=== PATIENT | female | born 1975 | race Caucasian/White ===

== ENCOUNTER → 2021-09-24 14:36 | Outpatient (CLI) | payer OTHER, SELFPAY ==
--- NOTE | ~2021-09-24 | MM_ITS ---
EXAMINATION: MM screening judith BI w bruno HISTORY: Screening TECHNIQUE: Craniocaudal and mediolateral oblique 3-D tomosynthesis images were obtained and synthetic 2-D images were generated. CAD analysis was submitted and interpreted. COMPARISON: 07/24/2011 BREAST PARENCHYMAL COMPOSITION: There are scattered areas of fibroglandular density. FINDINGS: The breasts are stable. No new masses, calcifications or architectural distortion are ident ified in either breast to suggest malignancy. IMPRESSION: 1. No mammographic evidence of malignancy. 2. Recommend routine screening mammography in one year. BI-RADS Category 1: Negative Reviewed, dictated and finalized at location [facility]
== END ==
PROVIDERS: PCP Family Medicine; Visit Provider Physician Assistant
DX: Z12.31 Encounter for screening mammogram for malignant neoplasm of breast (principal)
CPT/HCPCS: 77063; 77067

== ENCOUNTER 2023-11-21 13:13 | Outpatient (CLI) | payer OTHER, SELFPAY ==
--- NOTE | ~2023-11-21 | US_ITS ---
Pelvic ultrasound. Clinical History: Hypertrophy of uterus Technique: Realtime transabdominal and transvaginal scanning of the pelvis was performed. Color flow Doppler and Doppler spectral analysis were performed. Findings: The uterus is anteverted, and measures 7.2 x 4.3 x 4.3 cm. The endometrial stripe has a th ickness of 5 mm. Probable posterolateral fibroid measures 1.8 cm in maximum diameter.. There is a 7.7 cm cystic mass in the left adnexal region with internal debris and probable echogenic mural nodule, most suggestive of left ovarian dermoid. Right ovary not visualized. There is no evidence of free fluid in the cul de sac. Impression: 1.8 cm uterine fibroid. Suspected 7.7 cm left ovarian dermoid. Consider CT or MR to further evaluate. Reviewed, dictated and finalized at [facility]. Impression: 1.8 cm uterine fibroid. Suspected 7.7 cm left ovarian dermoid. Consider CT or MR to further evaluate.
== END 2023-11-21 13:14 ==
LOC: MICIMG 13:14
PROVIDERS: PCP Physician Assistant; Visit Provider Obstetrics & Gynecology
DX: N85.2 Hypertrophy of uterus (principal); D25.9 Leiomyoma of uterus, unspecified
CPT/HCPCS: 76830; 76856

== ENCOUNTER 2024-01-16 08:27 | Outpatient (CLI) | payer OTHER, SELFPAY | END 2024-01-16 08:28 | disposition home or self-care (01) | LOC: ANHSURGERY 08:30 | PROVIDERS: PCP Physician Assistant; Visit Provider Obstetrics & Gynecology | DX: N92.0 Excessive and frequent menstruation with regular cycle (principal); Z01.818 Encounter for other preprocedural examination | CPT/HCPCS: 36415; 86850; 86900; 86901 ==

== ENCOUNTER 2024-01-20 00:14 | Day surgery (SDC) | payer OTHER, SELFPAY ==
[2024-01-13 12:12] VITALS: BMI 41.2
--- NOTE | 2024-01-13 13:24 | PC.NURSE ---
Report to the Outpatient Waiting Room, entrance under the green pavilion located off [facility], at time __6:00AM on date __01/20/24____. Planned Procedure Time: ___7:30AM . Time changes happen often and if your time is changed the preop area will call you the afternoon before. - You and your visitor will be asked to self-screen and do not enter if you have any COVID symptoms. - A mask is optional within the hospital at this time. Patients may have clear liquids (water, carbonated beverages, clear teas, apple juice) until 3 hours prior to surgery with a maximum of 20 ounces. - No food from midnight until time of surgery. Take the following medications with a SIP of water the morning of surgery: NONE DO NOT STOP ANY OF YOUR OTHER PRESCRIPTION MEDICATIONS PRIOR TO SURGERY ?EXCEPT THE FOLLOWING Medications to discontinue per physician HOLD ALL VITAMINS/SUPPLEMENT 3 DAYS PRE-OP PER ANESTHESIA Date to take last dose 01/16/24 Please no make-up, nail ivorian, hairspray, perfume, deodorant, or body powder the day of surgery. No jewelry (including any body piercings) or valuables the day of surgery, leave them at home. Please take a shower or bath the night before, or the morning of, surgery with an antibacterial soap. Wear comfortable, loose fitting clothing. - Jewelry must be removed prior to entering the operating room. Rings and piercings that are not removed may be cut off. - The hospital will not accept responsibility for valuables. - Please leave all valuables, including medications, at home the day of surgery. If you are going home after surgery, a licensed truck driver's offsider must drive you home. - NO public transportation without another adult if you receive anesthesia. - We recommend that an adult stay with you for 24 hours following discharge. - We also recommend that you do not drive, make important decision, drink alcoholic beverages, or take any drugs that were not prescribed by your health care provider for at least 24 hours after your discharge time. Follow any additional instructions given to you from your surgeon. If you or anyone in your household have experienced Covid symptoms in the past week, please notify your surgeon or the nurse liaison at the phone number below for possible testing. Telephone instructions given to ____PATIENT and asked if any additional questions and then verbalized understanding. Patient advised to call surgeon office or pre surgery nurse liaison [phone] if any additional questions.
--- NOTE | 2024-01-19 15:38 | PM.IMHP ---
H&P: HPI History of Present Illness Date/Time: 01/19/24 15:38 Chief Complaint: Heavy periods and dermoid cyst Narrative: She is a perimenopausal female was seen at her annual exam and was noted to have an enlarged uterus. Subsequent ultrasound showed a 7 cm dermoid cyst she also had a small fibroid. She does have a history of heavy periods her periods are not regular since perimenopause but when she does have a period it is heavy and she has soiling and has to stop working.? Discussed options for heavy bleeding to include endometrial ablation,hormonal options, IUD and discussed the treatment options for dermoid which is surgical. She has had an endometrial biopsy which did not show any malignancy. She desires definitive treatment of the menorrhagia with hysterectomy.? She is aware the only option for the dermoid is excision which will include the ovary.? She states she just found out her mother who has dementia was diagnosed with ovarian cancer years ago.? She wants both ovaries to be removed at the time of the hysterectomy. She is aware she will go into immediate menopause and discussed symptoms of menopause and bone health. She has been informed of the hysterectomy robotic assisted procedure risks benefits of the procedure and risks benefits of the options listed above. And she continues to desire definitive treatment with hysterectomy and bilateral salpingo-oophorectomy. Review of Systems Review of Systems: All systems reviewed & are unremarkable except as noted in HPI and below Cardiovascular: Cardiovascular: Reports no additional cardiovascular complaints, Denies chest pain and Denies dyspnea Respiratory: Respiratory: Reports no additional respiratory complaints and Denies dyspnea Gastrointestinal: Gastrointestinal: Reports abdominal pain, Denies change in bowel habits, Denies diarrhea, Denies nausea and Denies vomiting Genitourinary: Genitourinary: Reports pelvic pain Musculoskeletal: Musculoskeletal: Reports back pain Integumentary/Breasts: Skin/Breast: Reports system reviewed and no additional complaints, except as docu Neurologic: Reports system reviewed and no additional complaints, except as documented PMFSH Past Medical History Medical History Allergies Headache Surgical History Surgical History H/O knee surgery X2 History of arthroscopy of right knee 1991 bucket handle tear 2017 History of sinus surgery septal reconstruction 1990 Family History Family History Mother Hypertension Depression Anxiety Disorder of thyroid History of ovarian cancer Father Hypertension Heart disease Sibling Breast cancer Other History of autoimmune disease Other Diabetes mellitus Family history of arthritis Family history of cardiovascular disease Family history of malignant neoplasm Social History Social History Smoking status: Never smoker Second hand tobacco smoke exposure: No Alcohol intake: current Drinks per week: 2 Substance use: never Substance use type: does not use Lack of Transportation: No Lack of Food: Never True Current Housing: I Have Housing Concerned About Future Housing: No Difficulty Paying Gas/Electric Bills: No Difficulty Paying for Meds: No Currently Unemployed: No Education: Associate Degree Difficulty w/ Childcare or Family Care: No Living arrangements: with family Additional living arrangements comments: HUSB & SON Occupation/Education: occupation Gender identity (if verbalized by the patient): Female Sexual Orientation (if Verbalized by the Patient): Straight or Heterosexual Spiritual care concerns: No Meds Home Medications and Allergies Home Medications Medication Instructions Recorded Confirm
[2024-01-20] VITALS (9 sets, daily range): BP systolic 111–132; BP diastolic 69–83; PULSE 77–96; RESP 12–19; TEMP 36.3–36.5; O2SAT 93–99
--- NOTE | 2024-01-20 07:13 | WPDANESEPPF ---
Anes - Initial Pre Proc Eval Procedure: Operation Date: 01/20/24 07:30 Proposed Procedures p Robotic Assisted Laparoscopic Total Vaginal Hysterectomy with Bilateral Salpingo-Oophorectomy, Laparoscopic Ovarian Cystectomy - Theodore Helm MD Date/Time: 01/20/24 07:13 Surgeon: Theodore Helm MD Pre Op Diagnosis: dermoid cyst, menorrhagia Patient Data Age: 48 Gender: F Height: 1.63 m Weight: 109 kg Allergies Allergy/AdvReac Type Severity Reaction Status Date / Time NKA Allergy Unknown Other Uncoded 01/20/24 07:12 Home Medications Medication Instructions Recorded Confirmed Type spironolactone 100 mg tablet See Rx Instructions .Route 12/11/23 01/13/24 Rx .COMPLEX #90 tabs cyanocobalamin (vitamin B-12) 1,000 mcg PO DAILY 01/13/24 01/13/24 History 1,000 mcg tablet Patient hx anesthesia problems: none Family hx anesthesia problems: none Results Review: All pre-operative results and documents have been reviewed as part of the pre-operative evaluation. PMFSH Past Medical History Medical History Allergies Headache Surgical History Surgical History H/O knee surgery X2 History of arthroscopy of right knee 1991 bucket handle tear 2017 History of sinus surgery septal reconstruction 1990 Family History Family History Mother Hypertension Depression Anxiety Disorder of thyroid History of ovarian cancer Father Hypertension Heart disease Sibling Breast cancer Other History of autoimmune disease Other Diabetes mellitus Family history of arthritis Family history of cardiovascular disease Family history of malignant neoplasm Social History Social History Smoking status: Never smoker Second hand tobacco smoke exposure: No Alcohol intake: current Drinks per week: 2 Substance use: never Substance use type: does not use Lack of Transportation: No Lack of Food: Never True Current Housing: I Have Housing Concerned About Future Housing: No Difficulty Paying Gas/Electric Bills: No Difficulty Paying for Meds: No Currently Unemployed: No Education: Associate Degree Difficulty w/ Childcare or Family Care: No Living arrangements: with family Additional living arrangements comments: HUSB & SON Occupation/Education: occupation Gender identity (if verbalized by the patient): Female Sexual Orientation (if Verbalized by the Patient): Straight or Heterosexual Spiritual care concerns: No Anes - Eval Final PreProcedure Day of Procedure 01/20/24 07:13 Patient weight: morbidly obese Heart: regular rate and rhythm Lungs: clear to auscultation Airway: Mallampati scale class III Neurological: alert and oriented Last oral intake: >/= 8 hours ASA classification: III Emergent: no Anesthetic plan: proceed Anesthesia type and monitoring: general ETT and standard monitoring Results Review: All pre-operative results and documents have been reviewed as part of the pre-operative evaluation. Informed Consent: The patient's anesthetic plan and its attendant risks and benefits were discussed with the patient/family/POA. Questions were solicited and answers provided to the satisfaction of the patient/family/POA.
[2024-01-20] MEDS: LACTATED RINGERS 1,000 ML 30 ML IV CONT ×2 (07:20→09:57)
--- NOTE | 2024-01-20 07:27 | P.DS_ITS ---
DS: Admitting Diagnosis Discharge Date 01/21/2024 Admitting Diagnosis 1. Dermoid cyst 2. Menorrhagia. 3. Fibroid uterus DS: Discharge Diagnosis Discharge Diagnosis (1) Dermoid cyst: Code(s): D36.9 - Benign neoplasm, unspecified site Status: Acute (2) Menorrhagia: Code(s): N92.0 - Excessive and frequent menstruation with regular cycle Status: Acute (3) Fibroid uterus: Code(s): D25.9 - Leiomyoma of uterus, unspecified Status: Acute DS: Summary Hospital Course Reason for hospitalization: Scheduled hysterectomy Hospital Course: She was admitted for planned robotic total hysterectomy and removal of dermoid. Postoperatively she did well. She had adequate pain control. She was discharged to home on day 1. She was discharged to [facility] Status at Discharge Functional status at discharge: independent ambulation Time Spent with Patient Time attestation: Total time spent providing and/or coordinating discharge services: Exam Const: General: cooperative Orientation/consciousness: oriented to person, oriented to place and oriented to time HENMT: Face/Nose/Sinus: Normal external nose present Eyes: General: appearance normal, both eyes and all related structures Resp: Effort & Inspection: normal respiratory effort GI: Inspection: normal to inspection Other: incisions intact Skin: General skin exam: normal color Neuro: General: oriented to person, oriented to place and oriented to time Extrem: General: normal to inspection and no calf tenderness Psych: Appearance: grossly normal Mental Status: mental status grossly normal Discharge Plan Discharge Patient Disposition: Home, Self-Care Discharge Instructions: Pelvic rest, nothing in the vagina for 6 weeks. No heavy lifting over 15 pounds for 6 weeks. Patient Instructions: Laparoscopic Hysterectomy (DC) Stand Alone Forms: General Discharge Instructions Follow-up/Referrals: Theodore Helm MD [Physician] - Keep Reg. Scheduled Appt. Discharge Medications: New hydrocodone-acetaminophen 5-325 mg Tablet 1 tablet PO Q3H PRN (Reason: Pain Rated 5 Or Less) Qty: 25 0RF ibuprofen 600 mg Tablet 600 mg PO Q6H PRN (Reason: Cramping) Qty: 40 0RF Rx Instructions: take with food docusate sodium [Colace] 100 mg capsule 100 mg PO BID Qty: 90 0RF ondansetron 4 mg tablet,disintegrating 4 mg PO Q6H PRN (Reason: nausea and vomiting) Qty: 20 0RF Continued cyanocobalamin (vitamin B-12) 1,000 mcg Tablet 1,000 mcg PO DAILY spironolactone 100 mg tablet See Rx Instructions .ROUTE .COMPLEX Qty: 90 1RF Dose Instruction: TAKE 1 TABLET BY MOUTH DAILY Rx Instructions: TAKE 1 TABLET BY MOUTH DAILY. TAKING FOR ADULT ACNE & HAIR LOSS
--- NOTE | 2024-01-20 07:36 | WPDHPUPDATE1 ---
History and Physical Update Update Date/Time: 01/20/24 07:36 History and Physical has been reviewed, including an updated exam of the patient. There are NO changes in the patient's condition. Risks, benefits, and alternatives have been discussed and questions answered. Patient agrees to proceed with procedure.
--- NOTE | 2024-01-20 07:37 | WPDHPUPDATE1 ---
History and Physical Update Update Date/Time: 01/20/24 07:37 History and Physical has been reviewed, including an updated exam of the patient. There are NO changes in the patient's condition. Risks, benefits, and alternatives have been discussed and questions answered. Patient agrees to proceed with procedure.
--- NOTE | 2024-01-20 07:38 | SUR.PREOP ---
[id number] Helm for needed H&P update
[2024-01-20] MEDS: ceFAZolin 2 GM/D5W 50 ML 2 GM/50 ML BAG IVPB (07:40)
[2024-01-20] MEDS: BUPivacaine HCL 0.5% PF 30 ML VIAL 20 ML INFILTRATE (08:31)
--- NOTE | 2024-01-20 09:43 | PM.OP ---
Procedure Note - Brief Procedure Note - Brief Date of procedure: 01/20/24 dermoid cyst, menorrhagia Post-op diagnosis: Same Procedure performed: Robotic assisted laparoscopic hysterectomy with bilateral salpingectomy with removal of dermoid cyst. Lysis of adhesions Surgeon: Theodore Helm MD Anesthesia: GETA Estimated blood loss (mL): 20 IV fluids (mL): 1,000 Urine output (mL): 500 Drains: No Packing: No Pathology: Yes (uterus with cervix and right and left fallopian tubes and ovaries with left ovary with dermoid ) Complications: No immediate complications Disposition: Floor
--- NOTE | 2024-01-20 10:10 | W.PM.PROC2 ---
Procedure Note - Detailed Date of Procedure 01/20/24 Pre-op Diagnosis dermoid cyst, menorrhagia Post-op Diagnosis Same (Pelvic adhesions) Procedure Performed 1. Robotic assisted laparoscopic total hysterectomy with bilateral salpingo-oophorectomy. 2. Lysis of adhesions 3. Removal of dermoid Surgeon Theodore Helm MD Anesthesia General Indications Dermoid cyst and menorrhagia Findings Normal right ovary, left ovary was dermoid, adhesed to lower left sidewall, ruptured with small amount of leakage of fatty fluid. Description of Procedure After informed consent was obtained she was taken to the operating room and general endotracheal anesthesia was administered. She was placed in low lithotomy position. An exam under anesthesia was performed. Uterus palpable enlarged, adnexal fullness on left palpated. She was and prepped and draped in sterile fashion. Arteaga catheter placed in bladder. Attention was turned to the vagina speculum was inserted. Single-tooth tenaculum placed on anterior lip of the cervix the uterus sounded to 7 cm. The cervix was dilated to a 8 Holden dilator. A size 6 uterine manipulator was inserted and secured. A size 3.0 colp cup was secured in the vagina. Then attention was turned to the abdomen with new sterile gloves. .5% marcaine injected subcutaneously. An incision was made horizontal 2 cm above the umbilicus. A veress needle inserted confirmation into abdomen confirmed with normal peritoneal pressures. A pneumoperitoneum of 15mmHG obtained. A small incision was made approximately 6 cm lateral to the port on the left side of the port. A size 8mm robotic port was inserted under laparoscopic visualization into the abdomen on the left side. Attention was turned to right side and robotic port and certified physical therapist assistant port placed. She was placed in trendelenburg position. Attention was turned to surgery console. The right round ligament ligated with vessel sealer. The anterior leaf of broad ligament dissected anteriorly. The right side of the bladder was dissected from the lower uterine segment and upper cervix. The right infundibulopelvic ligament was ligated with the vessel sealer. The a posterior leaf of the broad ligament was further dissected. The ascending uterine vessels on the right were ligated. The uterine vessels were ligated. Attention was turned to the left round ligament which was ligated and the anterior leaf of the broad ligament was dissected anteriorly. The rest of the vesicouterine peritoneum was dissected off of the uterus. Once the bladder was dissected below the colp cup then lysis of adhesions of the colon to left side wall performed to mobilize the left ovary. The infundibulopelvic ligament ligated. The dermoid was adhesed inferiorly to side wall. During manipulation of ovary with lysis of adhesions the cyst was entered. Small amount of adipose fluid released and was suction. The ascented uterine vessels and uterine artery on left ligated. The colpotomy performed and uterus with cervix and ovaries with cyst removed vaginally. The cuff closed with two sutures of 0 vicrly on vlock. hemostasis noted. Pelvis irrigated vigorously. Hemoderm placed in pelvis. The patient was taken out of Trendelenburg position. The pneumoperitoneum was released and the ports were removed. The skin incisions were closed with 4 O Vicryl and skin glue. The patient was extubated in operating room. Arteaga catheter removed. The sponge count was correct x2. Patient tolerated procedure well and was taken to recovery in stable condition. Estimated Blood Loss 20 Urine Output 500 Drains No Packing No Pathology Yes (uterus with cervix and fallopian tubes and ovaries) Complications No immediate complications Condition Stable Disposition PACU [facility] Billing Surgery - Charge Forward: Surgery Billing
--- NOTE | 2024-01-20 10:29 | SUR.PHASEI ---
UPON ARRIVAL TO PACU, PATIENT SUCTIONED ORALLY SMALL AMOUNT WHITE SALIVA. AIRWAY INTACT. AT 1015 PATIENT'S SATS DROPPED TO 56%; JAW THRUST PUT INTO PLACE, SUCTIONED AND BAGGED WITH AMBU BAG. ANESTHESIOLGY CALLED STAT TO ASSIST. SATS LEN QUICKLY TO 90S%. PATIENT AWAKENED SLIGHTLY.
[2024-01-20] MEDS: fentaNYL CITRATE INJ (*CRX) 100 MCG/2 ML VIAL 25 MCG IV PUSH ×8 (10:34→11:12)
[2024-01-20] MEDS: KETOROLAC 30 MG/ML VIAL (*BKC) IV PUSH (10:35)
[2024-01-20] MEDS: HYDROmorphone HCL INJ (*CRX) 1 MG/ML SYR 0.5 MG IV PUSH ×2 (11:21→11:36)
--- NOTE | 2024-01-20 11:31 | SUR.PHASEI ---
PATIENT ABLE TO VOID SMALL AMOUNT ON BEDPAN.
--- NOTE | 2024-01-20 11:38 | SUR.PHASEI ---
DR. KATHY HARVEY'D PATIENT TO BE ADMITTED TO [facility]. SATS HAVE REMAINED >95% EVEN WITH NARCOTIC ADMINISTRATIONS. PATIENT AWAKE AND ALERT, ORIENTED X 3.
[2024-01-20] MEDS: HYDROcodone/acetaminophen (*CRX) 5-325 MG TABLET 1 TAB PO (12:15)
[2024-01-20] MEDS: ONDANSETRON INJ 4 MG/2 ML VIAL IV PUSH (12:15)
[2024-01-20] MEDS: LACTATED RINGERS 1,000 ML 125 ML IV CONT (12:15)
[2024-01-20] MEDS: METOCLOPRAMIDE HCL INJ 10 MG/2 ML VIAL IV PUSH (15:10)
[2024-01-20] MEDS: SIMETHICONE 80 MG TAB.CHEW PO (15:32)
[2024-01-20] MEDS: HYDROcodone/acetaminophen (*CRX) 10-325 MG TABLET 1 TAB PO ×2 (15:32→20:05)
[2024-01-20] MEDS: IBUPROFEN 600 MG TABLET PO (15:32)
[2024-01-20] MEDS: SENNA/DOCUSATE SODIUM TABLET 2 TAB PO (20:56)
[2024-01-21 00:14] VITALS: BP 104/63; PULSE 88; RESP 18; TEMP 36.7; O2SAT 95
[2024-01-21] MEDS: HYDROcodone/acetaminophen (*CRX) 10-325 MG TABLET 1 TAB PO (06:04)
[2024-01-21] MEDS: IBUPROFEN 600 MG TABLET PO ×2 (06:04→13:24)
[2024-01-21 06:10] VITALS: BP 114/56; PULSE 76; RESP 20; TEMP 36.9; O2SAT 94
--- NOTE | 2024-01-21 07:38 | WPDANESPN ---
Anes - Prog Note Post-Op Date/Time: 01/21/24 07:38 Cardiovascular status: normal Respiratory status: normal Airway patency: baseline Mental status: baseline Post-Op hydration status: normal Vital Signs: Last Vital Signs Temp 36.9 C 01/21/24 06:10 Pulse 76 01/21/24 06:10 Resp 20 01/21/24 06:10 BP 114/56 L 01/21/24 06:10 Pulse Ox 94 01/21/24 06:10 O2 Del Method Room Air 01/21/24 06:10 O2 Flow Rate 10 01/20/24 10:40 Pain Score (VAS): 4 I/O: Intake & Output 01/20/24 01/20/24 01/21/24 15:59 23:59 07:59 Intake Total 1050 Output Total 1000 600 Balance 50 -600 Post-procedural complaints: none Patient Feedback: Patient satisfied with anesthetic care.
[2024-01-21] MEDS: SIMETHICONE 80 MG TAB.CHEW PO (07:39)
[2024-01-21 07:40] VITALS: BP 119/67; PULSE 81; RESP 16; TEMP 36.5
[2024-01-21] MEDS: SPIRONOLACTONE 50 MG TABLET 100 MG PO (07:40)
--- NOTE | 2024-01-21 08:54 | PM.GYNPNOP ---
POULTRY DRESSER - A/P Assessment and plan (1) S/P laparoscopic hysterectomy: Code(s): Z90.710 - Acquired absence of both cervix and uterus Status: Acute Postoperative Procedures: Procedures Operation Date: 01/20/24 07:30 Actual Procedure Side Surgeon p Robotic Assisted Laparoscopic Total Vaginal Hysterectomy with Bilateral Salpingo-Oophorectomy Bilateral Theodore Helm MD Postoperative day: 1 Postoperative status: doing well Postoperative plan: routine post-op care and discharge (this evening after tolerating reg diet and pain better) Time Spent With Patient Time: Total time spent is greater than 50% in coordination of care (as documented) at patient's floor/unit and/or counseling patient: Time with patient: less than 15 minutes POULTRY DRESSER- PN:Subj Post-Op Subjective Date/time seen: 01/21/24 08:54 Interval history: POD#1 Dianna reports doing well today. Her pain is a little worse today; taking the PO meds, which are helping. She had a couple episodes of vomiting overnight; nausea improved today, has ordered breakfast. She denies any vaginal bleeding. She has voided. She has passed flatus. She has ambulated and denies any symptoms of anemia. Review of Systems Review of Systems: All systems reviewed & are unremarkable except as noted in HPI and below (HPI) Constitutional: Constitutional: Denies chills, Denies fever(s) and Denies headache(s) Eyes: Eyes: Denies change in vision ENT: Denies dizziness and Denies headache(s) Cardiovascular: Cardiovascular: Denies chest pain and Denies rapid heart rate Respiratory: Respiratory: Denies cough Genitourinary: Genitourinary: Denies abnormal vaginal bleeding Neurologic: Denies dizziness and Denies headache(s) Exam Const: General: cooperative, healthy appearing, comfortable and no acute distress Orientation/consciousness: patient oriented x3 Resp: Effort & Inspection: normal respiratory effort Auscultation: clear to auscultation bilaterally Cardio: Rate: regular rate GI: Inspection: normal to inspection and incision ( LSC incisions c/d/i) GI Palp: Yes abdominal tenderness (appropriate) and Yes Soft to palpation Auscultation: normal bowel sounds : Other: normal bleeding on pad Skin: General skin exam: normal color Neuro: General: patient oriented x3 Psych: Appearance: grossly normal Affect: normal affect Attitude: cooperative POULTRY DRESSER - PN: Obj Data Vital Signs Vital Signs: Vital Signs - 24 hr 01/20/24 09:57 01/20/24 10:10 01/20/24 10:25 Temperature 97.4 F L Pulse Rate 79 83 96 Respiratory Rate 18 16 18 Blood Pressure 113/77 122/73 130/76 Pulse Oximetry 93 93 97 Oxygen Delivery Simple Face Mask Simple Face Mask Simple Face Mask Oxygen Flow Rate 8 10 10 01/20/24 10:40 01/20/24 10:55 01/20/24 11:10 Temperature Pulse Rate 82 85 87 Respiratory Rate 12 16 19 Blood Pressure 128/74 116/83 111/73 Pulse Oximetry 99 95 95 Oxygen Delivery Simple Face Mask Room Air Room Air Oxygen Flow Rate 10 01/20/24 12:00 01/20/24 20:10 01/20/24 20:10 Temperature 97.6 F 97.7 F Pulse Rate 77 81 77 Respiratory Rate 18 18 18 Blood Pressure 116/71 118/69 Pulse Oximetry 93 95 93 Oxygen Delivery Room Air Oxygen Flow Rate 01/21/24 00:14 01/21/24 00:14 01/21/24 06:10 Temperature 98.0 F 98.5 F Pulse Rate 88 88 76 Respiratory Rate 18 18 20 Blood Pressure 104/63 114/56 L Pulse Oximetry 95 95 94 Oxygen Delivery Room Air Oxygen Flow Rate 01/21/24 06:10 01/21/24 07:40 Temperature 97.7 F Pulse Rate 76 81 Respiratory Rate 20 16 Blood Pressure 119/67 Pulse Oximetry 94 Oxygen Delivery Room Air Oxygen Flow Rate Intake/Output Intake/Output: Intake & Output 01/18/24 01/19/24 01/20/24 01/21/24 23:59 23:59 23:59 23:59 Intake Total 1050 Output Total 1600 Balance -550 Meds/Results Medications: Active Medications Generic Name Dose Route Start Last Admin Trade Name Freq PRN Reason Stop Dose A
[2024-01-21] MEDS: HYDROcodone/acetaminophen (*CRX) 5-325 MG TABLET 1 TAB PO (13:24)
== END 2024-01-21 17:35 | disposition home or self-care (01) ==
LOC: ANHSURGERY 07:30 → ANHOB2 15:46
PROVIDERS: PCP Physician Assistant; Visit Provider Obstetrics & Gynecology
PROC: (CPT 58571; principal; 2024-01-20 07:30)
DX: D27.1 Benign neoplasm of left ovary (principal); D27.0 Benign neoplasm of right ovary; N80.03 Adenomyosis of the uterus; D25.9 Leiomyoma of uterus, unspecified; N92.0 Excessive and frequent menstruation with regular cycle; N73.6 Female pelvic peritoneal adhesions (postinfective); N72 Inflammatory disease of cervix uteri; N87.9 Dysplasia of cervix uteri, unspecified; E66.01 Morbid (severe) obesity due to excess calories; Z68.41 Body mass index [BMI] 40.0-44.9, adult
CPT/HCPCS: 58571; S2900; 36415; 86850; 86900; 86901; 88307; 99199; A9270; J0690; J1100; J1170; J1885; J2250; J2405; J2704; J2765; J3010; J7030; J7120

== ENCOUNTER 2024-03-21 14:58 | Outpatient (CLI) | payer OTHER, SELFPAY ==
--- NOTE | ~2024-03-21 | MM_ITS ---
EXAMINATION: MM screening judith BI w bruno HISTORY: Screening TECHNIQUE: Craniocaudal and mediolateral oblique 3-D tomosynthesis images were obtained and synthetic 2-D images were generated. CAD analysis was submitted and interpreted. COMPARISON: 09/24/2021 BREAST PARENCHYMAL COMPOSITION: Not dense: There are scattered areas of fibroglandular density.. FINDINGS: There is no evidence of suspicious mass, calcification, or architectural distortion to sugg est malignancy in either breast. There has been no suspicious interval change. IMPRESSION: 1. No mammographic evidence of malignancy. 2. Recommend routine screening mammography in one year. BI-RADS Category 1: Negative Reviewed, dictated and finalized at location B.
== END 2024-03-21 14:59 ==
LOC: MICIMG 14:59
PROVIDERS: PCP Physician Assistant; Visit Provider Physician Assistant
DX: Z12.31 Encounter for screening mammogram for malignant neoplasm of breast (principal)
CPT/HCPCS: 77063; 77067

== ENCOUNTER 2025-07-19 08:33 | Emergency (ER) | payer OTHER, SELFPAY ==
--- NOTE | 2025-07-19 08:34 | ED.URI ---
HPI - URI/Sore Throat General Chief Complaint: Urogenital-Female Stated Complaint: UTI Time Seen by Provider: 07/19/25 08:44 Source: patient, RN notes reviewed and old records reviewed Mode of arrival: ambulatory Limitations: no limitations History of Present Illness HPI Narrative: 50-year-old female presents to the [facility] with concerns for a UTI. patient reports last night she noticed blood in her urine, burning with urination, low back pain and nausea. Denies fevers. Denies abdominal pain. Has taken Tylenol. Has a history of a hysterectomy Onset (ago): hour(s) (12) Treatments prior to arrival: acetaminophen Related Data Home Medications ?Medication ?Instructions ?Recorded ?Confirmed ?Last Taken ?Type cyanocobalamin (vitamin B-12) 1,000 mcg PO DAILY 01/13/24 07/19/25 01/16/24 History 1,000 mcg tablet Allergies Allergy/AdvReac Type Severity Reaction Status Date / Time No Known Allergies Allergy Verified 07/19/25 08:36 Review of Systems Review of Systems: All systems reviewed & are unremarkable except as noted in HPI and below Constitutional: Constitutional: Reports no additional constitutional complaints ENT: Reports system reviewed and no additional complaints, except as documented Cardiovascular: Cardiovascular: Reports no additional cardiovascular complaints, Denies chest pain and Denies dyspnea Respiratory: Respiratory: Reports no additional respiratory complaints, Denies chest congestion, Denies cough and Denies dyspnea Gastrointestinal: Gastrointestinal: Reports as per HPI, Denies abdominal pain and Reports nausea Genitourinary: Genitourinary: Reports as per HPI and Reports dysuria Musculoskeletal: Musculoskeletal: Reports as per HPI Integumentary/Breasts: Skin/Breast: Reports system reviewed and no additional complaints, except as docu PMFSH Past Medical History Medical History Morbid obesity with BMI of 40.0-44.9, adult Post-op pain Dermoid cyst Well woman exam with routine gynecological exam Menorrhagia Fibroid uterus Enlarged uterus Headache Allergies Surgical History Surgical History History of total abdominal hysterectomy and bilateral salpingo-oophorectomy H/O knee surgery X2 History of arthroscopy of right knee 1992 bucket handle tear 2017 History of sinus surgery septal reconstruction 1990 Family History Family History Mother Hypertension Depression Anxiety Disorder of thyroid History of ovarian cancer Father Hypertension Heart disease Sibling Breast cancer Other History of autoimmune disease Other Diabetes mellitus Family history of arthritis Family history of cardiovascular disease Family history of malignant neoplasm Social History Social History Smoking status: Never smoker Second hand tobacco smoke exposure: No Alcohol intake: current Drinks per week: 2 Substance use: never Substance use type: does not use Do You Feel Safe in your Home?: Yes Lack of Transportation: No Lack of Food: Never True Current Housing: I Have Housing Concerned About Future Housing: No Difficulty Paying Gas/Electric Bills: No Difficulty Paying for Meds: No Currently Unemployed: No Education: Associate Degree Difficulty w/ Childcare or Family Care: No Living arrangements: with family Additional living arrangements comments: HUSB & SON Occupation/Education: occupation Gender identity (if verbalized by the patient): Female Sexual Orientation (if Verbalized by the Patient): Straight or Heterosexual Spiritual care concerns: No Comments At the time of my signature, I reviewed and agree with the nursing past medical, surgical, social, and family history. There is no relevant family history pertinent to the patient complaint. Exam Const: General: cooperative, no acute distress, well developed, alert, tired appearing and well nourished Nutritional Appearance: well nourished and obese Orientation/consciousness: patient oriented x3 Limitations: no limitations HENMT: Head: normal to inspection Mouth: Yes Normal oral and palatal mucosa present, Yes lip normal, Yes tongue normal and Yes moist mucous membranes Eyes: General: appearance normal, both eyes and all related structures Alignment and Position: alignment normal Neck: Neck: normal visual inspection, full ROM, no lymphadenopathy and no meningeal signs Chest: Chest palpation & inspection: normal inspection of the chest Resp: Effort & Inspection: normal respiratory effort and able to speak in complete sentences Auscultation: clear to auscultation bilaterally, no crackles, no rales, no rhonchi and no wheezes Cardio: Rate: regular rate : General: Yes no CVA tenderness Skin: General skin exam: normal color and no rashes or lesions noted Neuro: General: patient oriented x3, gait normal, moves all extremities and no meningeal signs Cognition (Neuro): normal cognition Speech: normal speech Gait exam (Neuro): Normal gait present Extrem: General: normal to inspection, full ROM, capillary refill normal and normal gait Psych: Appearance: grossly normal and well kempt Mental Status: mental status grossly normal Speech and movement: Normal speech and movement present and Clear speech present Affect: normal affect Attitude: cooperative Course Course Level of Care: Express Care Visit Vital Signs Vital signs: Vital Signs Temperature 97.2 F L 07/19/25 08:43 Pulse Rate 84 07/19/25 08:43 Respiratory Rate 18 07/19/25 08:43 Blood Pressure 117/76 07/19/25 08:43 Pulse Oximetry 97 07/19/25 08:43 Oxygen Delivery Room Air 07/19/25 08:43 Temperature 97.2 F L 07/19/25 08:43 Pulse Rate 84 07/19/25 08:43 Respiratory Rate 18 07/19/25 08:43 Blood Pressure 117/76 07/19/25 08:43 Pulse Oximetry 97 07/19/25 08:43 Oxygen Delivery Room Air 07/19/25 08:43 Reviewed MDM - URI/Sore Throat MDM Narrative Medical decision making narrative: patient presents with her . Symptoms since last night of blood, urinary burning. Patient also complains of low back pain. Urine dip has ketones, protein, nitrites and leukocytes. Patient is appropriate for outpatient treatment with Augmentin and Pyridium with strict signs and symptoms to proceed to the emergency room. Discharge instructions reviewed with patient, as well as provided in writing per nursing staff. The instructions also include specific and strict return/GO TO THE ER as well as f/u information. All questions have been answered, and the patient deny any further questions with discharge and discharge plan. Some parts of this dictation were generated by voice recognition software and may contain typographical and/or grammatical inaccuracies. Differential Diagnosis Differential diagnosis: Likely other ( cystitis, UTI ) Lab Data Labs: Lab Results 07/19/25 Range/Units 08:48 POC Urine Color Dark POC Urine Clarity Cloudy POC Urine pH 5.5 POC Ur Specif [place] 1.015 POC Urine Protein 2+ (Negative) POC Ur Glucose (UA) Negative (Negative) POC Urine Ketones Trace (Negative) POC Urine Blood 3+ (Negative) POC Urine Nitrite Positive (Negative) POC Urine Bilirubin Negative (Negative) POC Urine Urobilinogen 0.2 POC U Leukocyte Esteras 1+ (Negative) reviewed Critical Care Time Critical Care Time Critical Care Time: No Discharge Plan Discharge Clinical Impression: Urinary tract infection Qualifiers: Urinary tract infection type: acute cystitis Hematuria presence: with hematuria Qualified Code(s): N30.01 - Acute cystitis with hematuria Patient Disposition: Home Condition: Stable Instructions: Antibiotic Form, Phenazopyridine (By mouth), Urinary Tract Infection in Women (DC) Additional Instructions: Increased water intake Take Tylenol as needed for pain Take antibiotic as prescribed Today your urine dip showed a probability of a UTI. You have been prescribed an antibiotic. Your urine will be sent to our lab for a culture. If at that time a bacteria grows that is not covered by the antibiotic prescribed you will be notified. Follow-up with primary care For new or worsening symptoms go directly to the emergency room Patient Language: Persian Prescriptions: New amoxicillin-pot clavulanate 875-125 mg tablet 1 tablet PO Q12H Qty: 10 0RF phenazopyridine [Pyridium] 200 mg tablet 200 mg PO TID PRN (Reason: pain) Qty: 6 0RF No Action cyanocobalamin (vitamin B-12) 1,000 mcg Tablet 1,000 mcg PO DAILY spironolactone 100 mg tablet See Rx Instructions .ROUTE .COMPLEX Qty: 90 1RF Dose Instruction: TAKE 1 TABLET BY MOUTH DAILY Rx Instructions: TAKE 1 TABLET BY MOUTH DAILY. TAKING FOR ADULT ACNE & HAIR LOSS Zepbound 5 mg/0.5 mL pen injector 5 mg subcut WEEKLY Qty: 2 0RF Follow-up/Referrals: Mikey Cristobal MD [Primary Care Provider, Family Practice] - 2 Weeks Clinical Impression: Urinary tract infection Stand Alone Forms: Work/School Release IP Time of Disposition: 08:52
[2025-07-19 08:43] VITALS: BP 117/76; PULSE 84; RESP 18; TEMP 36.2; O2SAT 97
--- OUTSIDE RECORDS SUMMARY | 2025-07-19 08:46 | XMS_ITS | Encounter Summary ---
Author Organization [facility] Address [address] [place] [address] Care Team Providers Care Crowning Inspector Name Role Phone Unavailable Primary Care Provider Unavailabl e Encounter Details Date Type Department Care Team (Late st Contact Info) Description 11/03/2023 Lab Requisition [facility] - DermPath Lab [address] [place] [id number] Brody Guzman MD [facility] D[facility] [address] [place] [phone] Dermatitis, unspecified Social History Tobacco Use Types Packs/Day Years Used Date Smoking Tobacco: Never Assessed Comments Unknown Sex and Gender Information Value Date Recorded Sex Assigned at Not on file 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 Gender Identity Not on file Sexual Orientation Not on file documented as of this encounter Plan of Treatment Not on file documented as of this encounter Procedures Procedure Name Priority Date/Time Associated Diagnosis Comments DERMATOPATHOLOGY Routine 11/03/2023 3:33 AM SERVICE TECH Dermatitis, unspecified documented in this encounter Results * DERMATOPATHOLOGY (11/03/2023 3:33 AM SERVICE TECH) Case Report Dermatopathology Report Case: [id number] Authorizing Provider: Brody Guzman MD Collected: 11/03/2023 03:33 AM Ordering Location: [facility] DermPath Lab Received: 11/04/2023 12:28 PM Pathologist: Ana Coronado MD Specimen: Skin, left forearm 1:21 PM [facility]ERMAT[facility] Final Diagnosis Specimen A. SKIN, left forearm: SUPERFICIAL PERIVASCULAR LYMPHOCYTIC INFILTRATE WITH EOSINOPHILS (L27.0) (see microscopic description and comment) 1:21 PM [facility] DERMATOP[facility]OR[facility] at 1321 SERVICE TECH Clinical History Urticaria, unspecified vs. Insect Bite vs. Urticarial Vasculitis 1:21 PM [facility] Gross Description Specimen A: Received is one formalin filled container labeled with the patient's name and designated left forearm. The specimen consists of a punch biopsy measuring 3x3x2 mm. Jar 0. 1:21 PM [facility] Microscopic Description Specimen A. SKIN, left forearm: Sections show a perivascular and interstitial infiltrate including lymphocytes and eosinophils. There are no prominent epidermal or interface changes. No extravasated erythrocytes or karyorrhectic debris is appreciated. Additional deeper sections were obtained and reviewed. COMMENT: These histological findings can be seen in an arthropod bite reaction, urticaria and hypersensitivity reactions to an ingested allergen. Clinical correlation is recommended. 1:21 PM [facility] Disclaimer An external and internal positive and negative controls are appropriate for the histochemical, immunohistochemical and immunofluorescence stain(s) in this case (if any), except where stated explicitly. The performance characteristics of the stain(s) cited in this report were developed and its performance characteristic determined by the Dermatopathology Laboratory at [facility], directed by Dr. Francesca Lorenzana. These tests need not be, and therefore are not, approved by the [place] Food and Drug Administration. The tests are used for clinical purposes. Billing Codes Specimen Charges Stain Charges 83091 1 1:21 PM [facility] Embedded Images 1:21 PM [facility]MAT[facility] Pathology/Cytolo gy TISSUE SPECIMEN FROM SKIN / Unknown 11/03/2023 3:33 AM SERVICE TECH 11/04/2023 12:28 PM SERVICE TECH us Brody Guzman MD LAB - PATHOLOGY/CYTOLOGY ORDE BERT Final Result DERMATOPATHOLOGY LABORATORY [facility] - Department of Dermatology [facility] [address] [facility] [phone] documented in this encounter Visit Diagnoses Diagnosis Dermatitis, unspecified documented in this encounter
--- OUTSIDE RECORDS SUMMARY | 2025-07-19 08:46 | XMS_ITS | Encounter Summary ---
Author Organization [facility] Address [address] [place] [address] Care Team Providers Care Architectural Project Captain Name Role Phone Unavailable Primary Care Provider Unavailabl e Encounter Details Date Type Department Care Team (Late st Contact Info) Description 12/20/2019 Lab Requisition [facility] DermPath Lab [address] [facility] [place] [address] [place] [address] Social History Tobacco Use Types Packs/Day Years Used Date Smoking Tobacco: Never Assessed Comments Unknown Sex and Gender Information Value Date Recorded Sex Assigned at Not on file 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 Gender Identity Not on file Sexual Orientation Not on file documented as of this encounter Plan of Treatment Not on file documented as of this encounter Procedures Procedure Name Priority Date/Time Associated Diagnosis Comments DERMATOPATHOLOGY Routine 12/19/2019 12:0 0 AM CDT documented in this encounter Results * DERMATOPATHOLOGY (12/19/2019 12:00 AM CDT) Case Report Dermatopathology Report Case: [id number] Authorizing Provider: Scott Hayden MD Collected: 12/19/2019 12:00 AM Ordering Location: [facility] DermPath Lab Received: 12/20/2019 01:04 PM Pathologist: Carol Ornelas MD Specimen: Skin, left side chest in mid axillary line 0 2:04 PM CDT DERMATOPATHOLOGY LABORATORY Final Diagnosis Specimen A. SKIN, left side chest in mid axillary line: ACROCHORDON (SOFT FIBROMA, SKIN TAG) (L91.8) 0 2:04 PM CDT DERMATOPATHOLOGY LABORATORY at 1404 CDT Clinical History R/O dys nevus. 0 2:04 PM CDT DERMATOPATHOLOGY LABORATORY Gross Description Specimen A: Received is one formalin filled container labeled with the patient's name and designated left side chest in mid axillary line. The specimen consists of a shave biopsy measuring [id number], bisected. Jar 0. 0 2:04 PM CDT DERMATOPATHOLOGY LABORATORY Microscopic Description Specimen A. SKIN, left side chest in mid axillary line: There is a gently folded epidermis surrounding a connective tissue core in which fat and collagen are intermingled. 0 2:04 PM CDT DERMATOPATHOLOGY LABORATORY Disclaimer An external and internal positive and negative controls are appropriate for the histochemical, immunohistochemical and immunofluorescence stain(s) in this case (if any), except where stated explicitly. The performance characteristics of the stain(s) cited in this report were developed and its performance characteristic determined by the Dermatopathology Laboratory at [facility], directed by Dr. Francesca Lorenzana. These tests need not be, and therefore are not, approved by the [place] Food and Drug Administration. The tests are used for clinical purposes. Billing Codes Specimen Charges Stain Charges 48067 1 0 2:04 PM CDT DERMATOPATHOLOGY LABORATORY Embedded Images 0 2:04 PM CDT DERMATOPATHOLOGY LABORATORY Pathology/Cytolog y TISSUE SPECIMEN FROM SKIN / Unknown 12/19/2019 12/20/2019 1:04 PM CDT us Scott Hayden MD LAB - PATHOLOGY/CYTOLOGY ORD ERABLES Final Result DERMATOPATHOLOGY LABORATORY [facility] - Department of Dermatology [facility] [facility], [address]th [place] [address], [facility] [phone] documented in this encounter Visit Diagnoses Not on filedocumented in this encounter
--- OUTSIDE RECORDS SUMMARY | 2025-07-19 08:46 | XMS_ITS | Encounter Summary ---
Author Organization [facility] Address [address] [place] [address] Care Team Providers Care Crate Opener Name Role Phone Unavailable Primary Care Provider Unavailabl e Encounter Details Date Type Department Care Team (Late st Contact Info) Description 06/09/2022 Lab Requisition [facility] DermPath Lab [address] [place] [address] Scott Hayden MD [address] [place] [id number] Social History Tobacco Use Types Packs/Day Years Used Date Smoking Tobacco: Never Assessed Comments Unknown Sex and Gender Information Value Date Recorded Sex Assigned at Not on file Legal Sex 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 Gender Identity Not on file Sexual Orientation Not on file documented as of this encounter Plan of Treatment Not on file documented as of this encounter Procedures Procedure Name Priority Date/Time Associated Diagnosis Comments DERMATOPATHOLOGY Routine 06/08/2022 3:33 AM CDT documented in this encounter Results * DERMATOPATHOLOGY (06/08/2022 3:33 AM CDT) Case Report Dermatopathology Report Case: [id number] Authorizing Provider: Scott Hayden MD Collected: 06/08/2022 03:33 AM Ordering Location: [facility] DermPath Lab Received: 06/09/2022 01:11 PM Pathologist: Coco Lorenzana MD Specimens: A) - Skin, right vertex scalp B) - Skin, right sikh lat to edge 5:56 PM CDT DERMATOPATHOLOGY LABORATORY Final Diagnosis Specimen A. SKIN, right vertex scalp: FIBROMA (D21.9) Specimen B. SKIN, right sikh lat to edge: ACTINIC KERATOSIS, ACANTHOLYTIC TYPE (L57.0) 2 5:56 PM CDT DERMATOPATHOLOGY LABORATORY at 1756 CDT Clinical History A/B: R/O SCC, [place], HAK 2 5:56 PM CDT DERMATOPATHOLOGY LABORATORY Gross Description Specimen A: Received is one formalin filled container labeled with the patient's name and designated right vertex scalp. The specimen consists of a shave biopsy measuring 5x8i7fl and 5f4m6ih. Jar 0. Specimen B: Received is one formalin filled container labeled with the patient's name and designated right sikh lat to edge. The specimen consists of a shave biopsy measuring [id number]. Jar 0. 2 5:56 PM CDT DERMATOPATHOLOGY LABORATORY Microscopic Description Specimen A. SKIN, right vertex scalp: This dome-shaped lesion contains dilated blood vessels, coarse collagen bundles, and stellate fibroblasts (MART-1/Melan A negative, P16 negative, and Factor XIIIA positive. Specimen B. SKIN, right sikh lat to edge: There is focal parakeratosis. The lower half of the epidermis shows disorderly maturation of keratinocytes with nuclear pleomorphism. Focally there is a suprabasilar cleft with acantholytic cells. 2 5:56 PM CDT DERMATOPATHOLOGY LABORATORY Disclaimer An external and internal positive and negative controls are appropriate for the histochemical, immunohistochemical and immunofluorescence stain(s) in this case (if any), except where stated explicitly. The performance characteristics of the stain(s) cited in this report were developed and its performance characteristic determined by the Dermatopathology Laboratory at [facility], directed by Dr. Francesca Lorenzana. These tests need not be, and therefore are not, approved by the [place] Food and Drug Administration. The tests are used for clinical purposes. Billing Codes Specimen Charges Stain Charges 43470 05456 1 1 74105 26337 44366 1 1 1 2 5:56 PM CDT DERMATOPATHOLOGY LABORATORY Embedded Images 2 5:56 PM CDT DERMATOPATHOLOGY LABORATORY Pathology/Cytology TISSUE SPECIMEN FROM SKIN / Unknown 06/08/2022 3:33 AM CDT 06/09/2022 1:11 PM CDT Miscellaneous samples (specimen) TISSUE SPECIMEN FROM SKIN / Unknown 06/08/2022 3:33 AM CDT 06/09/2022 1:11 PM CDT us Scott Hayden MD LAB - PATHOLOGY/CYTOLOGY ORD ERABLES Final Result DERMATOPATHOLOGY LABORATORY [facility] - Department of Dermatology [facility] [address] [place] [address], [address] [phone] documented in this encounter Visit Diagnoses Not on filedocumented in this encounter
--- OUTSIDE RECORDS SUMMARY | 2025-07-19 08:46 | XMS_ITS | Clinical Summary ---
Author Organization [facility] Address [address] [place] [address] Care Team Providers Care Nuclear Radiation Engineer Name Role Phone Unavailable Primary Care Provider Unavailabl e Source Comments [facility],non-owned Affiliates and Associated Physician Practices is amultiple site organization consisting of ambulatory clinics and hospital sitesin [place], [place]. This disclosure is being madepursuant to the Care Everywhere program and may not contain all information available regarding this patient. 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 Gender Identity Not on file Sexual Orientation Not on file Plan of Treatment Health Maintenance Due Date Last Done Comments COLOGUARD (AGES 45-75) - COL ON CA SCREENING 1976 COLON MONITORING 1976 COLONOSCOPY - COLON CA SCREENING 1976 CT COLONOGRAPHY - COLON CA SCREENING 1976 Colorectal Cancer Screening 1976 FIT - COLON CA SCREENING 1976 FLEX SIG - COLON CA SCREENING 1976 LIPID TESTING 1976 MAMMOGRAM 1976 HIV SCREENING 1991 HEPATITIS C SCREENING 05/16/1994 DTAP/TDAP/TD VACCINES (1 - Tdap) 1995 HEPATITIS B VACCINE (1 of 3 - 19+ 3-dose series) 1995 Cervical Cancer Screening 1997 PAP SMEAR 1997 PAP with HPV 2006 DEPRESSION SCREENING 09/05/2024 COVID-19 VACCINE (2024-2 6 season) 2025 INFLUENZA VACCINE (#1) 2025 ZOSTER VACCINE (1 of 2) 2026 HIB VACCINE Aged Out No longer eligi ble based on patient's age to complete this topic HPV VACCINE Aged Out No longer eligi ble based on patient's age to complete this topic MENINGOCOCCAL (Group B) VACC INE SHARED DECISION-MAKING Aged Out No longer eligibl e based on patient's age to complete this topic MENINGOCOCCAL GROUPS A/C/Y/W VACCINE Aged Out No longer eligible b ased on patient's age to complete this topic Insurance AETNA AETNA * Guarantor: DIANNA VARGAS Account Type Relation to Patient Date of Phone Billing Address Personal/Family [address] [place] [address] SELF PAY NO INSURANCE Member Subscriber Plan / Payer (Ef fective for All Dates) Name:Dianna Vargas Member ID:Not on file Relation to Subscriber:Not on file Name:DIANNA VARGAS Subscriber ID:Not on file Address: [address] [place] [address] Payer ID:Not on file Group ID:Not on file Type:Self Pay Address: [place], [place] * Guarantor: DIANNA VARGAS Account Type Relation to Patient Date of Phone Billing Address Personal/Family [address] [place] [address] SELF PAY NO INSURANCE Member Subscriber Plan / Payer (Ef fective for All Dates) Name:Dianna Vargas Member ID:Not on file Relation to Subscriber:Not on file Name:DIANNA VARGAS Subscriber ID:Not on file Address: [address] [place] [address] [place] [address] Payer ID:Not on file Group ID:Not on file Type:Self Pay Address: [place], [place] * Guarantor: DAINNA VARGAS Account Type Relation to Patient Date of Phone Billing Address Personal/Family [address] [place] [address] SELF PAY NO INSURANCE Member Subscriber Plan / Payer (Ef fective for All Dates) Name:Dianna Vargas Member ID:Not on file Relation to Subscriber:Not on file Name:DIANNA VARGAS Subscriber ID:Not on file Address: [address] [place] [address] Payer ID:Not on file Group ID:Not on file Type:Self Pay Address: [place], [place]
--- OUTSIDE RECORDS SUMMARY | 2025-07-19 08:46 | XMS_ITS | Encounter Summary ---
Author Organization [facility] Address [address] [place] [place] [address] Care Team Providers Care Time Cycle Operator Name Role Phone Unavailable Primary Care Provider Unavailabl e Encounter Details Date Type Department Care Team (Late st Contact Info) Description 11/12/2021 Lab Requisition [facility] DermPath Lab [address] [place] [address] Scott Hayden MD [address] [place] [id number] Social History Tobacco Use Types Packs/Day Years Used Date Smoking Tobacco: Never Assessed Comments Unknown Sex and Gender Information Value Date Recorded Sex Assigned at Not on file Legal Sex Female 5:51 PM NURSE OBGYN Gender Identity Not on file Sexual Orientation Not on file documented as of this encounter Plan of Treatment Not on file documented as of this encounter Procedures Procedure Name Priority Date/Time Associated Diagnosis Comments DERMATOPATHOLOGY Routine 11/11/2021 12:0 0 AM NURSE OBGYN documented in this encounter Results * DERMATOPATHOLOGY (11/11/2021 12:00 AM NURSE OBGYN) Case Report Dermatopathology Report Case: [id number] Authorizing Provider: Scott Hayden MD Collected: 11/11/2021 12:00 AM Ordering Location: [facility] DermPath Lab Received: 11/12/2021 12:31 PM Pathologist: Claire Levin MD Specimen: Skin, left cheek lateral to ala 11:32 AM NURSE OBGYN DERMATOPATHOLOGY LABORATORY Final Diagnosis Specimen A. SKIN, left cheek lateral to ala: COMPOUND MELANOCYTIC NEVUS (D22.39) 2 11:32 AM [facility] at [address] [facility] Clinical History R/O dysplastic nevus. 2 11:32 AM [facility]ERMATOPATH[facility]Y [facility]AT[facility] Gross Description Specimen A: Received is one formalin filled container labeled with the patient's name and designated left cheek lateral to ala. The specimen consists of a shave biopsy measuring 6v2t1cj. Jar 0. 11:32 AM [facility] DERMATOPATHOLOGY [facility]ORATORY Microscopic Description Specimen A. SKIN, left cheek lateral to ala: There are nests of melanocytes at the dermal-epidermal junction and within the dermis. 11:32 AM [facility] DERMATOPATHOLOGY LABORATORY Disclaimer An external and internal positive and negative controls are appropriate for the histochemical, immunohistochemical and immunofluorescence stain(s) in this case (if any), except where stated explicitly. The performance characteristics of the stain(s) cited in this report were developed and its performance characteristic determined by the Dermatopathology Laboratory at [facility], directed by Dr. Francesca Lorenzana. These tests need not be, and therefore are not, approved by the [place] Food and Drug Administration. The tests are used for clinical purposes. Billing Codes Specimen Charges Stain Charges 75912 1 2 11:32 AM [facility] DERMATOPATH[facility]Y [facility]ORATORY Embedded Images 11:32 AM [facility]ERMATOPATH[facility]ORY Pathology/Cytolog y TISSUE SPECIMEN FROM SKIN / Unknown 11/11/2021 11/12/2021 12:31 PM NURSE OBGYN us Scott Hayden MD LAB - PATHOLOGY/CYTOLOGY ORD ERABLES Final Result DERMATOPATHOLOGY LABORATORY [facility] - Department of Dermatology [address] [place] [address], [facility] [phone] documented in this encounter Visit Diagnoses Not on filedocumented in this encounter
--- OUTSIDE RECORDS SUMMARY | 2025-07-19 08:49 | XMS_ITS | Clinical Summary ---
Author Organization [facility] Address [address] [place] [address] Care Team Providers Care Conference Interpreter Name Role Phone Unavailable Primary Care Provider Unavailabl e Social History Tobacco Use Types Packs/Day Years Used Date Smoking Tobacco: Never Assessed Comments Unknown Sex and Gender Information Value Date Recorded Sex Assigned at Not on file Legal Sex Female 5:01 PM CDT Gender Identity Not on file Sexual Orientation Not on file Plan of Treatment Health Maintenance Due Date Last Done Comments Cervical Cancer Screening Pa p Smear (Age 30 to 64) Every 3 Years 1976 Colorectal Cancer Screening Colonoscopy (10 Years) 1976 Annual Physical 1979 Hepatitis C 1994 DTaP, Tdap and Td Vaccines ( 1 - Tdap) 1995 Hepatitis B Vaccines (1 of 3 - 19+ 3-dose series) 1995 Cervical Cancer Screening Pa p with HPV Testing (Age 30 to 64) Every 5 Years 2006 Cervical Cancer Screening with HPV 2006 Mammogram Screening 2016 COVID-19 Vaccine (2024-2 6 season) 2025 Influenza Adult (#1) 2025 Hepatitis A Vaccines Aged Out No long er eligible based on patient's age to complete this topic Meningococcal B Vaccine Aged Out No l onger eligible based on patient's age to complete this topic Meningococcal Vaccine Aged Out No elida yandy eligible based on patient's age to complete this topic Pneumococcal Vaccine: Pediat rics (0 to 5 Years) and At-Risk Patients (6 to 49 Years) Aged Out No longer eligible b ased on patient's age to complete this topic RSV Immunizations Under 20 Months Aged Out No longer eligible based on patient's age to complete this topic
[2025-07-19 08:52] LABS: EDUAAPPEAR Cloudy; EDUABILI Negative (Negative); EDUABLOOD 3+ (Negative); EDUACOLOR1 Dark; EDUAGLUCOSE Negative (Negative); EDUAKETONE Trace (Negative); EDUALEUKO 1+ (Negative); EDUANITRATE Positive (Negative); EDUAPH 5.5; EDUAPROTEIN 2+ (Negative); EDUASPGRAVITY 1.015; EDUAUROBILI 0.2
== END 2025-07-19 08:54 | disposition home or self-care (01) ==
PROVIDERS: Emergency Provider Nurse Practitioner; PCP Family Medicine
DX: N30.01 Acute cystitis with hematuria (principal); E66.01 Morbid (severe) obesity due to excess calories; Z68.41 Body mass index [BMI] 40.0-44.9, adult
CPT/HCPCS: 81003; 87077; 87086; 87186; 99213; G0463